=== PATIENT | male | born 1990 | race African-American/Black ===

== ENCOUNTER 2019-06-14 05:16 | Emergency (ER) | payer OTHER ==
[2019-06-14] MEDS ORDERED: PROPARACAINE 0.5% OPHTH DROPS 15 ML RIGHTEYE STA (05:31)
[2019-06-14] MEDS ORDERED: NEOMYCIN/POLYMYX/DEXAMETH OPHTH OINT RIGHTEYE STA (05:40)
--- NOTE | 2019-06-14 05:44 | ED Physician Documentation ---
PD HPI OPHTHO - Stated complaint Stated Complaint: EYE PX - Chief complaint Chief Complaint: Heent - History obtained from History obtained from: Patient - History of Present Illness Timing - onset: Enter time (329), Today Timing - duration: Minutes Timing - details: Abrupt onset, Still present Location: Right Quality / character: Burning, Throbbing, Sharp Associated symptoms: Redness, Tearing, FB sensation Contributing factors: Blunt trauma Similar symptoms before: Has not had sx before Recently seen: Not recently seen - Additional information Additional information: 29-year-old male was preferring to go to work he was outside and was struck in the right eye with a branch. He thought he might build to continue on to work but he is realized that he has a lot of irritation to his eye is quite painful and he is not able to even keep the eye open. Review of Systems Constitutional: denies: Fever Eyes: reports: Irritation. denies: Loss of vision, Decreased vision, Photophobia, Discharge Ears: denies: Ear pain Nose: denies: Rhinorrhea / runny nose, Congestion Respiratory: denies: Dyspnea, Cough GI: denies: Vomiting PD PAST MEDICAL HISTORY - Past Medical History Past Medical History: No - Past Surgical History Past Surgical History: Yes HEENT: Other - Present Medications Home Medications: Ambulatory Orders Medication Instructions Recorded Confirmed Neomycin/Poly/Dexam Ophth Oint 0.5 gm RIGHTEYE QID #1 tube 06/14/19 [Maxitrol Ophth Oint] - Allergies Allergies/Adverse Reactions: Allergies Allergy/AdvReac Type Severity Reaction Status Date / Time No Known Drug Allergies Allergy Verified 06/14/19 05:25 - Social History Does the pt smoke?: Yes Smoking Status: Current every day smoker Does the pt drink ETOH?: Yes Does the pt have substance abuse?: No - Immunizations Immunizations are current?: Yes - POLST Patient has POLST: No PD ED PE NORMAL - Vitals Vital signs reviewed: Yes (hypertensive ) - General General: Alert and oriented X 3, No acute distress, Well developed/nourished - HEENT HEENT: Atraumatic, PERRL, EOMI, Other (There is a corneal abrasion present in the right eye laterally. There is no FB under the lid and no asymetry to the pupil, no hyphema and no disruption of the globe. ) - Neck Neck: Supple, no meningeal sign, No bony TTP - Respiratory Respiratory: No respiratory distress - Neuro Neuro: Alert and oriented X 3, newspaper illustrator 2-12 intact, No motor deficit, No sensory deficit, Normal speech Eye Opening: Spontaneous Motor: Obeys Commands Verbal: Oriented GCS Score: 15 - Psych Psych: Normal mood, Normal affect Results - Vitals Vitals: Vital Signs - 24 hr 06/14/19 05:20 Temperature 36.1 C L Heart Rate 64 Respiratory 16 Rate Blood Pressure 147/103 H O2 Saturation 99 Oxygen O2 Source Room air PD MEDICAL DECISION MAKING - ED course Complexity details: reviewed results, re-evaluated patient, considered differential, d/w patient ED course: 29-year-old male with a corneal abrasion to the right cornea has an abrasion large enough to see without the use of fluorescein. There is no foreign material in the eye and no hyphema or distortion of the pupil. The patient is administered Alcaine with relief of his pain and he is administered Maxitrol ointment 1/4 inch. Departure - Departure Disposition: 01 Home, Self Care Clinical Impression: Corneal abrasion, right Qualifiers: Encounter type: initial encounter Qualified Code(s): S05.01XA - Injury of conjunctiva and corneal abrasion without foreign body, right eye, initial encounter Condition: Stable Instructions: ED Eye Injury Corneal Abrasion Follow-Up: PETRONA BAL DO [Primary Care Provider] - Zac Damon MD [Provider Admit Priv/Credential] - Prescriptions: Neomycin/Poly/Dexam Ophth Oint [Maxitrol Ophth Oint] 0.5 gm RIGHTEYE QID #1 tube
[2019-06-14 05:55] VITALS: BP 137/105
== END 2019-06-14 05:58 | disposition home or self-care (01) ==
LOC: ED 05:16
DX: S05.01XA Injury of conjunctiva and corneal abrasion without foreign body, right eye, initial encounter (principal); W22.8XXA Striking against or struck by other objects, initial encounter; Y93.01 Activity, walking, marching and hiking; Y92.008 Other place in unspecified non-institutional (private) residence as the place of occurrence of the external cause; F17.200 Nicotine dependence, unspecified, uncomplicated
CPT/HCPCS: 99282; 99284; A9270; J3490